=== PATIENT | male | born 1965 | race Hispanic/Latino ===

== ENCOUNTER → 2023-11-17 11:06 | Outpatient (CLI) | payer OTHER, SELFPAY | LOC: RESP 11:09 | PROVIDERS: Referring Provider Orthopaedic Surgery Orthopaedic Surgery of the Spine; Visit Provider Orthopaedic Surgery Orthopaedic Surgery of the Spine | DX: Z01.818 Encounter for other preprocedural examination (principal) | CPT/HCPCS: 93005 ==

== ENCOUNTER 2024-01-04 06:25 | Day surgery (SDC) | payer OTHER, SELFPAY ==
[2023-11-29 14:46] VITALS: BMI 28.0
--- NOTE | 2024-01-04 | DI.RAD.S_ITS ---
PROCEDURE: XR LUMBAR SPINE 2-3V INDICATIONS: L3-4 L4-5 L5-S1 LAMINECTOMY TECHNIQUE: 3 intraoperative views of the lumbar spine were acquired. COMPARISON: None. FINDINGS: Intraoperative views during laminectomy. Degenerative changes of the lumbar spine are noted. IMPRESSION: Intraoperative views during laminectomy. Dictated by: Ronaldo Helton M.D. on 01/04/2024 at 10:28 Approved by: Ronaldo Helton M.D. on 01/04/2024 at 10:28
[2024-01-04 07:00] VITALS: BP 179/97; PULSE 97; RESP 16; TEMP 36.6; O2SAT 99; BMI 28.0
[2024-01-04] MEDS: LACTATED RINGERS 1,000 ML 100 ML IV ×2 (07:00→09:27)
--- NOTE | 2024-01-04 07:45 | P.HP_ITS ---
History of Present Illness History of Present Illness Date Patient Seen: 01/04/24 Time Patient Seen: 07:45 Date of Onset of Symptoms: 09/14/22 Chief complaint: right hip and leg pain Narrative: Patient was injured while working on 09/14/22. He has progressively worsening leg pain, weakness and numbness. He had PT, chiropractor treatment, [facility] without much relief during the 6 months after injury. His pain and weakness in his legs are worsening. He has difficulty walking, standing due to his leg pain and weakness with MRI showing severe spinal stenosis at multiple levels. [facility] Medical History HTN (hypertension) Spinal stenosis, lumbar region with neurogenic claudication Lumbar disc herniation Social History household members: none Smoking Status: Never smoker alcohol intake: current Meds Home Medications and Allergies Home Medications Medication Instructions Recorded Confirmed Type lisinopril 30 mg PO DAILY 11/29/23 01/04/24 History amlodipine 5 mg tablet 5 mg PO DAILY 01/04/24 01/04/24 History gabapentin 300 mg capsule 300 mg PO ONCE PM insomnia 01/04/24 01/04/24 History Allergies Allergy/AdvReac Type Severity Reaction Status Date / Time No Known Drug Allergies Allergy Verified 01/04/24 06:47 Review of Systems Review of Systems ROS: Yes All systems reviewed with the patient and are negative except as otherwise documented Exam Vital Signs (past 8 hours): - 01/04/24 07:00 Temperature 97.9 F Pulse Rate 97 H Respiratory Rate 16 Blood Pressure 179/97 H Pulse Oximetry 99 Oxygen Delivery Method Room Air Oxygen Delivery Method Room Air Neuro Other: bilateral LE weakness 4/5 in hip flexion, 4/5 in quadriceps and EHL. Sensiblity decreased to bilateral L3, L4, L5 dermatome. + straight leg raise to RLE. - Clonus BLE. Objective Imaging MRI - lumbar: My impression: MRI L-spine: L3-4, L4-5 with severe central and bilateral foramen stenosis L5-S1 with moderate central stenosis, moderate severe bilateral foramen stenosis. L1-2, L2-3 with mild stenosis without neuro compromise. Assessment & Plan Assessment & Plan narrative: Mr. Mcclendon is here for evaluation of his lumbar. He has symptoms of neurogenic claudication. His MRI shows severe spinal stenosis at L3-4, L4-5, L5-S1. I discussed my findings with him. He failed over 6 months of conservative care with persisting neurologic symptoms. He may benefit from L3-4, L4-5 laminectomy and L5-S1 left hemilaminectomy surgery. He has been medically optimized and is proceeding as planned.
[2024-01-04] MEDS: CEFAZOLIN 2 GM/100 ML PREMIX 100 ML IV (08:05)
--- NOTE | 2024-01-04 08:27 | SUR.OPER ---
Prone on spine table, head in foam head support, padded chest and pelvic supports, gel pad at knees, lower legs supported by pillows; nipples, genitalia and toes free of pressure, arms secured on foam padded arm boards at <90 degrees abduction. Tape over blanket at thigh secured to table.
[2024-01-04] MEDS: BUPIVACAINE 0.25% (PF) 30 ML, EPINEPHrine 0.15 MG INJ (08:41)
--- NOTE | 2024-01-04 10:09 | P.OP_ITS ---
Operative Date/Time/Diagnoses Date of procedure: 01/04/24 Time of procedure: 07:45 Pre-op diagnosis: 1. L3-4, L4-5, L5-S1 spinal stenosis with neurogenic claudication 2. L3-4, L4-5, L5-S1 foraminal stenosis Post-op diagnosis: same Procedure & Clinicians Procedure: 1. L3-4, L4-5 laminectomies with bilateral partial facetecomies 2. L5-S1 right hemilaminectomy Same procedure as scheduled: Yes Indications: Patient has been having chronic back pain and worsening lumbar radiculopathy and symptoms of neurogenic claudication. Patient sustained a work related injury August of 2022 with progressively worsening leg weakness pain consistent with neurogenic claudication. Patient has lumbar MRI confirming severe spinal stenosis centrally as well as in the bilateral neuroforamen from L3-4 to L5-S1. The patient's MRI findings correlates with his symptoms and exam findings. Patient failed multiple conservative management with worsening pain weakness and numbness in his lower extremity. Patient has been having difficulty performing activity of daily living. After discussing risks benefits of treatment options, patient elected proceed with surgery. Surgeon: Anthony Aviles Network Developer: Delores Godoy Click Yes if Unassisted: No Anesthesia Type: General Operative Notes Closure Type: primary Specimen(s): none sent Estimated Blood Loss (mL): 5 Blood products transfused: none Procedure in detail: Patient was seen in the preoperative area. Risks and benefits of the surgery was discussed with the patient. Informed consent was obtained from the patient and placed in the chart. Surgical site was marked. Patient was taken to the operative room. General anesthesia was administered. Prophylactic antibiotic was given to the patient less than 30 min before the incision was made. Patient was placed into a prone position on the Bradley table. Patient's back was then prepped and draped in the sterile fashion. Time-out was performed at this time. Using AP and lateral C-arm imaging the interval between L3-4 L4-5 L5-S1 was identified and marked on patient's back. A 1 inch incision 1 in from midline was made on the right side. The fascia was incised in line with skin incision. Globus MARS retractors was placed inside the incision and docked onto the L L3 and L4 lamina. Using microsurgical technique and operating microscope, a L3 and L4 laminectomy was performed using a Kerrison rongeur. Liagamentum flavum was resected at the site of the laminotomy. Either side of the dura was exposed. Bilateral partial facetcomies was performed to further decompress the lateral recess at L3-4 L4-5 level. After the laminectomy was completed, the area medial lateral superior and infe rior to the area of the laminectomy was inspected and explored using a micro curette. The mars retractor was redirected over the L5-S1 interval. Using microsurgical technique and operative microscope a hemilaminectomy was performed at L5 level. Kerrison rongeur a micro curette was used to free up the ligamentum flavum which was resected during the process of a hemilaminectomy for the further decompressing the epidural space and lateral recess. Patient was found to have epidural lipomatosis at L3-4 L4-5 and L5-S1 level. Residual foraminal stenosis was identified and the end of the decompression at all 3 levels. In order to fully decompress L3 levels additional facetectomy was required which may render the lumbar levels unstable at all 3 levels. For this reason additional facetectomy was not performed since no fusion surgery was planned for the patient. This was discussed with the patient prior to surgery and has been part of the plan since patient's surgery was scheduled. This patient did not want to have a fusion procedure when he was signed up for surgery and thus patient's surgery was limited due to laminectomy and limited facetectomy for decompression without creating iatrogenic instability at all 3 levels. The wound was then irrigated with sterile normal saline. 40 mg Depo-Medrol was placed into the epidural space. The deep fascia was closed with 1-0 Vicryl. The subcutaneous tissue was closed with 2-0 Vicryl. The skin was closed with skin alirio. Patient tolerated the procedure well. There were no complications. Patient was transferred recovery room in stable condition. Complications: none Post-operative Condition: stable Disposition: PACU Plan for aftercare: Discharge to home
[2024-01-04 10:11] VITALS: BP 101/64; PULSE 91; RESP 20; TEMP 36.6; O2SAT 99
[2024-01-04 10:16] VITALS: BP 99/64; PULSE 104; RESP 14; O2SAT 96
[2024-01-04 10:21] VITALS: BP 113/73; PULSE 97; RESP 14; O2SAT 95
[2024-01-04 10:29] VITALS: BP 126/80; PULSE 12; RESP 96; TEMP 36.6
[2024-01-04 10:34] VITALS: BP 120/75; PULSE 91; RESP 12; O2SAT 96
[2024-01-04] MEDS: OXYCODONE/ACETAMINOPHEN 5/325 TABLET 1 TAB PO (10:44)
== END 2024-01-04 11:58 | disposition home or self-care (01) ==
PROVIDERS: Referring Provider Physical Medicine & Rehabilitation Pain Medicine; Visit Provider Orthopaedic Surgery Orthopaedic Surgery of the Spine
PROC: (CPT 63047; principal; 2024-01-04 07:45)
DX: M48.062 Spinal stenosis, lumbar region with neurogenic claudication (principal); M51.26 Other intervertebral disc displacement, lumbar region; M54.16 Radiculopathy, lumbar region
CPT/HCPCS: 63047; 63048; 63030; 72100; 76000; J0171; J0330; J0690; J1100; J2250; J2405; J2704; J2919; J3010